=== PATIENT | female | born 1975 | race Caucasian/White ===

== ENCOUNTER 2017-05-03 20:33 | Observation (INO) | payer SELFPAY ==
[~2017-05-03 20:33] MED LIST: DEXAMETHASONE SOD PHOSPHATE INJ 4 MG/1 ML VIAL ONE; GLYCOPYRROLATE INJ 0.4 MG/2 ML VIAL ONE; KETOROLAC TROMETHAMINE 60 MG/2 ML SDV ONE; LIDOCAINE 2% INJ-PF (20 MG/ML) 2 ML AMPUL ONE; METOCLOPRAMIDE HCL INJ/PF 10 MG/2 ML SDV ONE; NEOSTIGMINE METHYLSULFATE 10 MG/10 ML VIAL ONE; ONDANSETRON HCL INJ/PF 4 MG/2 ML SDV ONE; ROCURONIUM BROMIDE INJ 50 MG/5 ML VIAL IV ONE; SUCCINYLCHOLINE CHLORIDE INJ 200 MG/10 ML VIAL ONE
[2017-05-03] MEDS ORDERED: KETOROLAC TROMETHAMINE INJ/PF 30 MG/1 ML SDV IV ONE ×2 (21:20→22:21)
[2017-05-03] MEDS ORDERED: ONDANSETRON HCL INJ/PF 4 MG/2 ML SDV IV ONE (21:20)
[2017-05-03] MEDS ORDERED: MORPHINE SULFATE 10 MG/ML INJ IV ONE (21:20)
--- NOTE | 2017-05-03 21:22 | ER Document Report ---
ED GI/ - General Chief Complaint: Abdominal Pain Stated Complaint: RIB PAIN Time Seen by Provider: 05/03/17 21:15 Notes: Patient is a 41-year-old female that comes emergency department for chief complaint of right upper quadrant pain" pain over the right ribs". She states symptoms have been going on for 3 days, tonight after dinner it became severe and she became nauseated. She ate chicken nuggets, mashed potatoes. She denies vomiting, fever, difficulty breathing, chest pain, flank pain, lower abdominal pain. She has had a cyst removal and endoscopy but denies any other surgeries. She takes no daily medications (takes as needed medications for migraine and asthma). TRAVEL OUTSIDE OF THE [place] IN LAST 30 DAYS: No - Related Data Allergies/Adverse Reactions: amoxicillin Allergy (Verified 01/29/16 09:54) Past Medical History - General Information source: Patient - Social History Smoking Status: Never Smoker Chew tobacco use (# tins/day): No Frequency of alcohol use: Rare Drug Abuse: None Lives with: Family Family History: Reviewed & Not Pertinent Patient has suicidal ideation: No Patient has homicidal ideation: No Pulmonary Medical History: Reports: Hx Asthma Neurological Medical History: Reports: Hx Migraine Renal/ Medical History: Denies: Hx Peritoneal Dialysis Past Surgical History: Reports: Hx Gynecologic Surgery - ovary cyst, Hx Orthopedic Surgery - toes bilaterally Review of Systems - Review of Systems Constitutional: No symptoms reported EENT: No symptoms reported Cardiovascular: No symptoms reported Respiratory: See HPI Gastrointestinal: See HPI Genitourinary: No symptoms reported Female Genitourinary: No symptoms reported Musculoskeletal: No symptoms reported Skin: No symptoms reported Hematologic/Lymphatic: No symptoms reported Neurological/Psychological: No symptoms reported Physical Exam - Vital signs Vitals: Temp Pulse Resp BP Pulse Ox 98.1 F 94 18 120/72 96 05/03/17 20:43 05/03/17 20:43 05/03/17 20:43 05/03/17 20:43 05/03/17 20:43 - General General appearance: Appears well, Alert In distress: Mild - Patient sitting on the edge of the bed, shifting, holding her upper abdomen, appears to be in some pain but is not in severe distress - HEENT Head: Normocephalic, Atraumatic Eyes: Normal Conjunctiva: Normal Extraocular movements intact: Yes Eyelashes: Normal Pupils: PERRL Nasal: Normal Mouth/Lips: Normal Mucous membranes: Normal Pharynx: Normal Neck: Normal - Respiratory Respiratory status: No respiratory distress Chest status: Nontender. No: Tender Breath sounds: Normal. No: Decreased air movement, Wheezing - Cardiovascular Rhythm: Regular. No: Tachycardia Heart sounds: Normal auscultation, S1 appreciated, S2 appreciated Murmur: No Normal capillary refill: Yes - Abdominal Inspection: Normal Tenderness: Tender - Patient with marked tenderness in the right upper quadrant , mild tenderness in the epigastric area, remaining abdomen is benign, Marroquin's sign, Guarding - Back Back: Normal, Nontender. No: Tender, CVA tenderness - Extremities General upper extremity: Normal inspection, Nontender, Normal strength, Normal temperature General lower extremity: Normal inspection, Nontender, Normal strength, Normal temperature. No: Edema - Neurological Neuro grossly intact: Yes Cognition: Normal Orientation: AAOx4 Gateway Coma Scale Eye Opening: Spontaneous Gateway Coma Scale Verbal: Oriented Gateway Coma Scale Motor: Obeys Commands Aditya Coma Scale Total: 15 Speech: Normal Cranial nerves: Normal Cerebellar coordination: Normal Motor strength normal: LUE, RUE, LLE, RLE Sensory: Normal - Skin Skin Temperature: Warm Skin Moisture: Dry Skin Color: Normal Course - Re-evaluation Re-evalutation: Mild leukocytosis at 12.3 with no bandemia or left shift. Chemistry is unremarkable including liver enzymes, bilirubin, lipase. Urine shows a few white blood cells, patient has no lower abdominal pain, flank pain, or dysuria. Culture placed. 05/03/17 22:20 On reevaluation patient still in obvious pain, she states medications help a little bit but she is still very uncomfortable and very nauseated. Ultrasound showing cholelithiasis without cholecystitis, ductal dilatation, or other concerning acute abnormality. 05/03/17 Patient reevaluated again, despite being re-medicated twice she still looks very uncomfortable and she is still holding her right upper abdomen. Remaining abdomen is completely benign. Discussed different options with patient. After discussion, will consult surgeon. Discussed with Dr. Wu, general surgery, patient will be admitted to surgical service for intractable pain with cholelithiasis. He does not recommend antibiotics at this time. Discussed with patient, patient states understanding and agreement with plan. - Vital Signs Vital signs: Temp Pulse Resp BP Pulse Ox 98.1 F 94 18 120/72 96 05/03/17 20:43 05/03/17 20:43 05/03/17 20:43 05/03/17 20:43 05/03/17 20:43 - Laboratory Result Diagrams: 05/03/17 21:03 05/03/17 21:03 Laboratory results interpreted by me: 05/03/17 05/03/17 05/03/17 21:03 21:03 21:08 WBC 12.3 H RDW 14.1 H Plt Count 490 H Total Bilirubin 0.1 L Urine Blood MODERATE H Ur Leukocyte Esterase SMALL H Discharge - Discharge Clinical Impression: RUQ pain, Nausea Cholelithiasis Qualifiers: Cholelithiasis location: gallbladder Cholecystitis presence: without cholecystitis Biliary obstruction: without biliary obstruction Qualified Code(s) : K80.20 - Calculus of gallbladder without cholecystitis without obstruction Condition: Stable Disposition: ADMITTED INPATIENT Admitting Provider: Surgicalist Unit Admitted: Surgical Floor
[2017-05-03 21:32] LABS: ABSOLUTE BASOPHILS # (AUTO) 0.1 10^3/uL (0.0-0.2); ABSOLUTE EOSINOPHILS # (AUTO) 0.3 10^3/uL (0.0-0.6); ABSOLUTE LYMPHOCYTES (AUTO) 4.2 10^3/uL (0.5-4.7); ABSOLUTE MONOCYTES (AUTO) 1.1 10^3/uL (0.1-1.4); ABSOLUTE NEUT (AUTO) 6.7 10^3/uL (1.7-8.2); BASOPHILS % (AUTO) 0.6 % (0-2); EOSINOPHILS % (AUTO) 2.7 % (0-6); HEMATOCRIT 37.5 % (36.0-47.0); HEMOGLOBIN 12.2 g/dL (12.0-15.5); LYMPHOCYTES % (AUTO) 33.8 % (13-45); MEAN CORPUSCULAR HEMOGLOBIN 27.2 pg (27.0-33.4); MEAN CORPUSCULAR HGB CONC 32.5 g/dL (32.0-36.0); MEAN CORPUSCULAR VOLUME 84 fl (80-97); MONOCYTES % (AUTO) 8.6 % (3-13); PLATELET COUNT 490 10^3/uL (150-450); RED BLOOD COUNT 4.48 10^6/uL (3.72-5.28); RED CELL DISTRIBUTION WIDTH 14.1 % (11.5-14.0); SEGMENTED NEUTROPHILS % (AUTO) 54.3 % (42-78); TOTAL CELLS COUNTED % (AUTO) 100 %; WHITE BLOOD COUNT 12.3 10^3/uL (4.0-10.5)
[2017-05-03 21:38] LABS: ANION GAP 10 (5-19); BLOOD UREA NITROGEN 11 mg/dL (7-20); CALCIUM 9.6 mg/dL (8.4-10.2); CARBON DIOXIDE 28 mmol/L (22-30); CHLORIDE 104 mmol/L (98-107); GLUCOSE 94 mg/dL (75-110); SODIUM 142.1 mmol/L (137-145)
[2017-05-03 21:39] LABS: ALANINE AMINOTRANSFERASE 26 U/L (9-52); ALBUMIN 4.3 g/dL (3.5-5.0); ALKALINE PHOSPHATASE 95 U/L (38-126); ASPARTATE AMINO TRANSFERASE 15 U/L (14-36); BILIRUBIN,DIRECT 0.1 mg/dL (0.0-0.4); BILIRUBIN,TOTAL 0.1 mg/dL (0.2-1.3); LIPASE 120.2 U/L (23-300); TOTAL PROTEIN 6.8 g/dL (6.3-8.2)
[2017-05-03 21:56] LABS: APPEARANCE,URINE SLIGHTLY-CLOUDY; BILIRUBIN,URINE NEGATIVE (NEGATIVE); COLOR,URINE YELLOW; GLUCOSE, URINE NEGATIVE (NEGATIVE); KETONES,URINE NEGATIVE (NEGATIVE); LEUKOCYTE ESTERASE,URINE SMALL (NEGATIVE); NITRITE,URINE NEGATIVE (NEGATIVE); PROTEIN,URINE NEGATIVE (NEGATIVE); URINE SPECIFIC GRAVITY 1.021; UROBILINOGEN,URINE NEGATIVE mg/dL (<2.0)
--- NOTE | 2017-05-03 22:11 | RADIOLOGY REPORT (SQ) ---
EXAM DESCRIPTION: U/S ABDOMEN LIMITED W/O DOP COMPLETED DATE/TIME: 05/03/2017 10:02 pm REASON FOR STUDY: RUQ pain COMPARISON: None. TECHNIQUE: Dynamic and static grayscale images acquired of the right upper quadrant and recorded on PACS. Additional selected color Doppler and spectral images recorded. LIMITATIONS: Study limited due to acoustical interference from fat or from air in the bowel. FINDINGS: PANCREAS: Parts or all of the pancreas poorly seen secondary to acoustical interference fr om fat or from air in the bowel. LIVER: Echotexture is coarse with increased echogenicity consistent with fatty infiltration. No mass es. LIVER VASCULATURE: Normal directional flow of the main portal vein and hepatic veins. GALLBLADDER: Gallstone(s). Finally distended. No pericholecystic fluid. No wall thickening. ULTRASOUND-DETECTED HERNANDEZ'S SIGN: Negative. INTRAHEPATIC DUCTS AND COMMON DUCT: CBD and intrahepatic ducts normal caliber. No filling defects. INFERIOR VENA CAVA: Normal flow. AORTA: No aneurysm. RIGHT KIDNEY: Normal size. Normal echogenicity. No solid or suspicious masses. No hydronephrosis. No calcifications. PERITONEAL CAVITY AND RIGHT PLEURAL SPACE: No ascites or effusions. OTHER: No other significant finding. IMPRESSION: FATTY LIVER. CHOLELITHIASIS WITHOUT SONOGRAPHIC EVIDENCE OF CHOLECYSTITIS. PANCREAS PA RTIALLY OR COMPLETELY OBSCURED. OTHERWISE NORMAL RIGHT UPPER QUADRANT ULTRASOUND. TECHNICAL DOCUMENTATION: JOB ID: [id number] [employer]- All Rights Reserved Reading location - IP/workstation name: [email or web address]
[2017-05-03] MEDS ORDERED: NORMAL SALINE 1000 ML 1,000 ML IV ONE (22:21)
[2017-05-03] MEDS ORDERED: HYDROMORPHONE HCL INJ/PF 2 MG/ML AMPULE IV ONE (22:21)
[2017-05-03] MEDS: NORMAL SALINE 1000 ML 1,000 ML IV PRN (23:15)
[2017-05-04] MEDS ORDERED: FENTANYL CITRATE INJ/PF 100 MCG/2 ML AMPUL ONE ×3 (00:18→23:09)
[2017-05-04] MEDS ORDERED: ONDANSETRON HCL INJ/PF 4 MG/2 ML SDV ONE ×2 (00:18→05:54)
[2017-05-04] MEDS: NORMAL SALINE 1000 ML 1,000 ML IV PRN ×2 (00:21→08:11)
[2017-05-04] MEDS ORDERED: ONDANSETRON HCL/PF 4 MG in NORMAL SALINE 50 ML IV PRN (01:32)
[2017-05-04] MEDS ORDERED: DEXTROSE 40% GEL 15 GM TUBE PO PRN ×2 (02:50)
[2017-05-04] MEDS ORDERED: DEXTROSE 50%-WATER 25 GM/50 ML DISP.SYRIN IV PRN ×2 (02:50)
[2017-05-04] MEDS ORDERED: GLUCAGON,HUMAN RECOMB 1 MG INJ SUBCUT PRN (02:50)
[2017-05-04] MEDS: FENTANYL CITRATE INJ/PF 100 MCG/2 ML AMPUL IV PRN ×5 (03:03→23:08)
[2017-05-04] MEDS: ONDANSETRON HCL INJ/PF 4 MG/2 ML SDV IV PRN ×2 (11:49→12:23)
[2017-05-04] MEDS ORDERED: KETOROLAC TROMETHAMINE INJ/PF 30 MG/1 ML SDV ONE (12:21)
[2017-05-04] MEDS ORDERED: ONDANSETRON HCL INJ/PF 4 MG/2 ML SDV IV PRN (13:33)
[2017-05-04] MEDS ORDERED: PROMETHAZINE HCL INJ 25 MG/1 ML VIAL IV PRN ×3 (13:34→22:21)
[2017-05-04] MEDS ORDERED: ONDANSETRON HCL INJ/PF 4 MG/2 ML SDV IV ONE (13:45)
--- NOTE | 2017-05-04 14:53 | PDOC H&P ---
History of Present Illness Admission Date/PCP: 05/03/17 23:09 Patient complains of: Right upper quadrant pain x 3 days History of Present Illness: MARK KAUR is a 41 year old female patient admitted via the emergency department with chief complaint of right upper quadrant pain for 3 days. The pain became worse last night after dinner and is associated with nausea. She ate chicken nuggets, mashed potatoes. She denies vomiting, fever, difficulty breathing, chest pain, flank pain, lower abdominal pain. She has had an open left ovarian cystectomy 28 yrs ago and diagnostic laparoscopy for suspected endometriosis 3 yrs ago in [place] - but was negative. She takes no daily medications (takes as needed medications for migraine and asthma). She had ultrasound in the ER that showed only gallstones but no sonographic signs of cholecystitis. Past Medical History Pulmonary Medical History: Reports: Asthma Neurological Medical History: Reports: Migraine Past Surgical History Past Surgical History: Reports: Orthopedic Surgery - toes bilaterally, Other - Open Left Ovarian Cystectomy 28 yrs ago Diagnostic Laparoscopy 3 yrs ago Social History Lives with: Family Smoking Status: Never Smoker Frequency of Alcohol Use: Rare Hx Recreational Drug Use: No Drugs: None Hx Prescription Drug Abuse: No Family History Family History: Reviewed & Not Pertinent Parental Family History Reviewed: Yes Children Family History Reviewed: Yes Sibling(s) Family History Reviewed.: Yes Medication/Allergy Home Medications: No Home Medications 05/04/17 Allergies/Adverse Reactions: amoxicillin Allergy (Verified 01/29/16 09:54) Review of Systems Constitutional: ABSENT: chills, fever(s), headache(s), weight gain, weight loss Eyes: ABSENT: visual disturbances Ears: ABSENT: hearing changes Nose, Mouth, and Throat: ABSENT: as per HPI, headache(s), mouth pain, sore throat, vertigo, other Cardiovascular: ABSENT: chest pain, dyspnea on exertion, edema, orthropnea, palpitations Respiratory: ABSENT: cough, hemoptysis Gastrointestinal: PRESENT: as per HPI Genitourinary: ABSENT: dysuria, hematuria Musculoskeletal: ABSENT: joint swelling Integumentary: ABSENT: rash, wounds Neurological: ABSENT: abnormal gait, abnormal speech, confusion, dizziness, focal weakness, syncope Psychiatric: ABSENT: anxiety, depression, homidical ideation, suicidal ideation Endocrine: ABSENT: cold intolerance, heat intolerance, polydipsia, polyuria Hematologic/Lymphatic: ABSENT: easy bleeding, easy bruising Physical Exam Vital Signs: Temp Pulse Resp BP Pulse Ox 98.0 F 86 13 120/69 100 05/04/17 12:22 05/04/17 12:22 05/04/17 12:22 05/04/17 12:22 05/04/17 12:22 Intake & Output 05/03/17 05/04/17 05/05/17 06:59 06:59 06:59 Intake Total 0 251 Balance 0 251 Weight 75.5 kg General appearance: PRESENT: cooperative, mild distress, well-developed Head exam: PRESENT: atraumatic, normocephalic Eye exam: PRESENT: conjunctiva pink, EOMI, PERRLA. ABSENT: scleral icterus Ear exam: PRESENT: normal external ear exam Neck exam: ABSENT: carotid bruit, JVD, lymphadenopathy, thyromegaly Respiratory exam: PRESENT: clear to auscultation gertrudis. ABSENT: rales, rhonchi, wheezes Cardiovascular exam: PRESENT: RRR. ABSENT: diastolic murmur, rubs, systolic murmur GI/Abdominal exam: PRESENT: guarding - RUQ, Marroquin's sign, normal bowel sounds, soft, tenderness - RUQ. ABSENT: ascites, diminished bowel sounds, distended, firm, hernia, mass, organolmegaly, rebound - RUQ Neurological exam: PRESENT: alert, awake, oriented to person, oriented to place , oriented to time, oriented to situation, CN II-XII grossly intact. ABSENT: motor sensory deficit Psychiatric exam: PRESENT: appropriate affect Results Impressions: Abdomen Ultrasound 05/03/17 21:20 IMPRESSION: FATTY LIVER. CHOLELITHIASIS WITHOUT SONOGRAPHIC EVIDENCE OF CHOLECYSTITIS. PANCREAS PARTIALLY OR COMPLETELY OBSCURED. OTHERWISE NORMAL RIGHT UPPER QUADRANT ULTRASOUND. Assessment & Plan - Diagnosis (1) Calculus of gallbladder with acute cholecystitis Is this a current diagnosis for this admission?: Yes - Plan Summary Plan Summary: The patient is admitted Keep NPO Will obtain a HIDA scan SCD Lovenox Incentive spirometry Pain control Nausea control Plan for a lap cholecystectomy if HIDA positive.
--- NOTE | 2017-05-04 17:50 | RADIOLOGY REPORT (SQ) ---
EXAM DESCRIPTION: NM HIDA SCAN COMPLETED DATE/TIME: 05/04/2017 4:37 pm REASON FOR STUDY: r/o cholecystitis COMPARISON: Correlation made to ultrasound from 05/03/2017 RADIONUCLIDE AND DOSE: DOSAGE RADIONUCLIDE: 4.63 millicuries Tc99m Mebrofenin. DOSAGE MORPHINE: Not administered. The route of agent administration: Intravenous TECHNIQUE: Serial imaging right upper quadrant up to 60 minutes following injection of radionuclide. Patient imaged AP and Right Lateral. LIMITATIONS: None. FINDINGS: LIVER: Normal visualization without areas of photopenia. INTRA-HEPATIC BILE DUCTS: Temporal visualization normal. No dilatation. COMMON BILE DUCT: Normal without dilatation or delayed visualization. GALLBLADDER: Not visualized. OTHER: No other significant finding. IMPRESSION: NORMAL UPTAKE SEEN WITHIN THE LIVER, BILIARY DUCTS, AND BOWEL. NO UPTAKE IDENTIFIED WIT HIN THE GALLBLADDER. THERE IS NO DELAYED IMAGING OR POST MORPHINE IMAGES PRESENTED FOR INTERPRETATIO N THEREFORE STUDY IS INDETERMINATE AND COULD EITHER REPRESENT ACUTE OR CHRONIC CHOLECYSTITIS. TECHNICAL DOCUMENTATION: JOB ID: [id number] [email or web address]- All Rights Reserved Reading location - IP/workstation name: [email or web address]
[2017-05-04] MEDS: ENOXAPARIN SODIUM INJ 40 MG/0.4 ML DISP.SYRIN SUBCUT SCH (19:27)
[2017-05-04] MEDS ORDERED: LIDOCAINE 1% INJ-PF (10 MG/ML) 30 ML SDV ONE (20:14)
[2017-05-04] MEDS ORDERED: BUPIVACAINE HCL 0.25 % INJ/PF (2.5 MG/1 ML) 30 ML VIAL ONE (20:14)
[2017-05-04] MEDS ORDERED: MIDAZOLAM 2 MG/2 ML INJ ONE (20:16)
[2017-05-04] MEDS ORDERED: FENTANYL CITRATE INJ/PF 250 MCG/5 ML AMPULE ONE (20:16)
[2017-05-04] MEDS ORDERED: PROPOFOL INJ 200 MG/20 ML VIAL IV ONE (20:17)
[2017-05-04] MEDS ORDERED: ACETAMINOPHEN 100 ML IV ONE (20:17)
[2017-05-04] MEDS ORDERED: LEVOFLOXACIN 750 MG/D5W RTU 750 MG/150 ML RTUPB IV ONE (21:18)
[2017-05-04] MEDS ORDERED: FENTANYL CITRATE INJ/PF 100 MCG/2 ML AMPUL IV PRN ×2 (22:21)
[2017-05-04] MEDS ORDERED: DIPHENHYDRAMINE HCL 50 MG/ML VIAL IV PRN (22:21)
[2017-05-04] MEDS ORDERED: MEPERIDINE HCL/PF INJ 25 MG/1 ML DISP.SYRIN IV PRN (22:21)
--- NOTE | 2017-05-04 22:38 | Operative Report ---
Operative Report PREOPERATIVE DIAGNOSIS: Acute Cholecystitis POSTOPERATIVE DIAGNOSIS: Acute Cholecystitis OPERATION: Laparoscopic Cholecystectomy SURGEON: MARY LOU MUÑOZ ANESTHESIA: GA TISSUE REMOVED OR ALTERED: Gallbladder COMPLICATIONS: none ESTIMATED BLOOD LOSS: 30 ml INTRAOPERATIVE FINDINGS: i. inflammed gallbladder with pericholecystic edema. ii. white bile. iii. gallstones PROCEDURE: The patient was brought to the operating room and placed on the operating table. General endotracheal anesthesia was administered and she was positioned supine with both arms placed on arm boards. A time out was done. The abdomen was prepped with chloraprep and sterile drapes laid. Under sterile aseptic conditions, access to the peritoneal cavity was gained using the optical bladeless trocar technique with a 10mm port at the umbilicus. Pneumoperitoneum was insufflated to 15 mmHg. Three additional ports were placed, a 10mm midline subxiphoid port and two 5mm right subcostal ports, one in the midclavicular line and the other in the anterior axillary line. The gallbladder was first aspirated of 130 ml of white bile (clear, colorless, water-like bile) and then it was grasped at the fundus with a grasper passed through the lateral right subcostal port. The infundibulum was grasped with a grasper passed through the medial right subcostal port. The Calot's triangle was dissected out to expose the cystic duct and artery with a critical view of safety displayed anteriorly and posteriorly. There were fibrous adhesions in the Calot's triangle necessitating a careful dissection. The duct was clipped three times toward the patient side and singly clipped toward the gallbladder and transected between the clips. The artery was transected with the Ligasure. The gallbladder was then dissected off the liver bed with the laparoscopic monopolar electrosurgical unit and retrieved from the peritoneal cavity in an endopouch. The pneumoperitoneum was desufflated and all the ports removed. The umbilical port site had the fascial layer closed with 0-prolene using the endoclosure device. The skin incisions were closed with 4-0 monocryl subcuticular stitches. The wounds were infiltrated with local anesthesia, a 1:1 mixture of 1 % lidocaine and 0.25% Bupivacaine, a total of 16 ml, they were cleaned and dressed with dermabond. The patient tolerated the procedure well, she was extubated in the operating room and taken to the PACU in stable condition.
[2017-05-05] MEDS: KETOROLAC TROMETHAMINE INJ/PF 30 MG/1 ML SDV IV PRN ×2 (03:42→12:21)
[2017-05-05] MEDS: NORMAL SALINE 1000 ML 1,000 ML IV PRN (03:42)
[2017-05-05] MEDS: FENTANYL CITRATE INJ/PF 100 MCG/2 ML AMPUL IV PRN (08:27)
[2017-05-05] MEDS: LEVOFLOXACIN 750 MG/D5W RTU 750 MG/150 ML RTUPB IV SCH (09:21)
[2017-05-05] MEDS: ENOXAPARIN SODIUM INJ 40 MG/0.4 ML DISP.SYRIN SUBCUT SCH (09:24)
[2017-05-05] MEDS: OXYCODONE-ACETAMINOPHEN 5-325 MG TABLET PO PRN ×2 (14:56→21:18)
[2017-05-05] MEDS: OXYCODONE HCL IR 5 MG TABLET PO PRN ×2 (14:58→21:18)
--- NOTE | 2017-05-05 23:14 | PDOC PROGRESS REPORT ---
Subjective Progress Note for:: 05/05/17 Subjective:: POD #1 s/p laparoscopic cholecystectomy No more abdominal pain No nausea or vomiting. Tolerating diet. Leaves alone and has 2 pets at home. No family in state. Not sure she can go back to home alone right now. Reason For Visit: ABDOMINAL PAIN Physical Exam Vital Signs: Temp Pulse Resp BP Pulse Ox 98.3 F 80 16 114/67 98 05/05/17 19:32 05/05/17 19:32 05/05/17 19:32 05/05/17 19:32 05/05/17 19:32 Intake & Output 05/04/17 05/05/17 05/06/17 06:59 06:59 06:59 Intake Total 0 3322 960 Output Total 116 1400 Balance 0 3206 -440 Weight 75.5 kg General appearance: PRESENT: no acute distress Respiratory exam: PRESENT: clear to auscultation gertrudis. ABSENT: rales, rhonchi, wheezes Cardiovascular exam: PRESENT: RRR. ABSENT: diastolic murmur, rubs, systolic murmur GI/Abdominal exam: PRESENT: normal bowel sounds, soft, other - insicions aer clean, dry, intact. ABSENT: distended, guarding, mass, organolmegaly, rebound, tenderness Neurological exam: PRESENT: alert, awake, oriented to person, oriented to place , oriented to time, oriented to situation, CN II-XII grossly intact. ABSENT: motor sensory deficit Results Impressions: Abdomen Ultrasound 05/03/17 21:20 IMPRESSION: FATTY LIVER. CHOLELITHIASIS WITHOUT SONOGRAPHIC EVIDENCE OF CHOLECYSTITIS. PANCREAS PARTIALLY OR COMPLETELY OBSCURED. OTHERWISE NORMAL RIGHT UPPER QUADRANT ULTRASOUND. Hepatobiliary Scan Nuclear Medicine 05/04/17 00:00 IMPRESSION: NORMAL UPTAKE SEEN WITHIN THE LIVER, BILIARY DUCTS, AND BOWEL. NO UPTAKE IDENTIFIED WITHIN THE GALLBLADDER. THERE IS NO DELAYED IMAGING OR POST MORPHINE IMAGES PRESENTED FOR INTERPRETATION THEREFORE STUDY IS INDETERMINATE AND COULD EITHER REPRESENT ACUTE OR CHRONIC CHOLECYSTITIS. Assessment & Plan - Diagnosis (1) Calculus of gallbladder with acute cholecystitis Is this a current diagnosis for this admission?: Yes - Plan Summary Plan Summary: Consult social professionals for discharge planning.
[2017-05-06] MEDS: OXYCODONE HCL IR 5 MG TABLET PO PRN ×2 (03:26→07:36)
[2017-05-06] MEDS: OXYCODONE-ACETAMINOPHEN 5-325 MG TABLET PO PRN ×2 (03:26→07:36)
[2017-05-06] MEDS: ENOXAPARIN SODIUM INJ 40 MG/0.4 ML DISP.SYRIN SUBCUT SCH (10:10)
[2017-05-06] MEDS: LEVOFLOXACIN 750 MG/D5W RTU 750 MG/150 ML RTUPB IV SCH (10:10)
[2017-05-06 12:17] VITALS: BP 110/71
--- NOTE | 2017-05-06 15:04 | DISCHARGE SUMMARY E ---
Discharge Summary NAME: MARK KAUR : 1975 AGE: 41Y ADMITTED: 05/03/2017 DISCHARGED: 05/06/2017 REASON FOR ADMISSION: Acute abdominal pain. SUMMARY OF HOSPITALIZATION: The patient is a 41-year-old white female who presents to the Emergency Department complaining of abdominal pain, nausea, and anorexia. She was evaluated by gallbladder ultrasonography and found to have gallstones. She also underwent a HIDA scan for unclear reasons. That was interpreted as a normal study. The patient was kept on IV fluids, n.p.o., and taken to the operating room on 05/03/2017 where she underwent laparoscopic cholecystectomy by . She tolerated the procedure well. There were no post procedure complications. By the second postoperative day, she was felt to be ready for discharge home. DISCHARGE DIAGNOSIS: Symptomatic cholelithiasis with cholecystitis, status post laparoscopic cholecystectomy, Dr. Mosqueda. DISPOSITION: Patient will be discharged home to the care of his family. Followup with Dr. Reich and colleague at [facility] in approximately a week to 10 days. She will take Tylenol or Motrin p.r.n. pain. DICTATING PHYSICIAN: ANKUR REICH M.D. [id number] PHY#: [id number] ID: [id number] JOB#: [id number] ACCT: [id number] cc:ANKUR REICH M.D., IVAN PA >
== END 2017-05-06 13:01 | disposition home or self-care (01) ==
LOC: ER 20:33 → INTOOBSV 23:09 → EH 23:09 → 4S 05-04 00:05
PROC: 0FT44ZZ Resection of Gallbladder, Percutaneous Endoscopic Approach (ICD-10-PCS; principal; 2017-05-03)
DX: K80.10 Calculus of gallbladder with chronic cholecystitis without obstruction (principal); J45.909 Unspecified asthma, uncomplicated
CPT/HCPCS: 47562; 99285; 96361; 96374; 96375; 36415; 87086; 83690; 85025; 81025; 80053; 81001; 88304 ×2; 76705; 78226; G0378 ×3; A9537; J2250; J3490 ×3; J1100; J1885 ×4; J3010 ×3; J2765; J2270; J1650; J1170; J2550; J0330; J2405 ×2; J7030 ×3; J2704; J1956 ×2; J0131; Q9969; 790

== ENCOUNTER → 2017-05-22 | Outpatient (CLI) | payer OTHER ==
[2017-05-22 14:43] LABS: ALANINE AMINOTRANSFERASE 613 U/L (9-52); ALBUMIN 4.4 g/dL (3.5-5.0); ALKALINE PHOSPHATASE 213 U/L (38-126); ASPARTATE AMINO TRANSFERASE 748 U/L (14-36); BILIRUBIN,DIRECT 3.2 mg/dL (0.0-0.4); BILIRUBIN,TOTAL 4.6 mg/dL (0.2-1.3); TOTAL PROTEIN 7.2 g/dL (6.3-8.2)
== END ==
LOC: OD 13:50
PROVIDERS: ATTEND Surgery
DX: R11.0 Nausea (principal); Z90.49 Acquired absence of other specified parts of digestive tract
CPT/HCPCS: 36415; 80076

== ENCOUNTER 2017-05-23 10:01 | Inpatient (IN) | payer SELFPAY ==
[~2017-05-23 10:01] MED LIST changes: -DEXAMETHASONE SOD PHOSPHATE INJ 4 MG/1 ML VIAL ONE; -GLYCOPYRROLATE INJ 0.4 MG/2 ML VIAL ONE; -KETOROLAC TROMETHAMINE 60 MG/2 ML SDV ONE; -METOCLOPRAMIDE HCL INJ/PF 10 MG/2 ML SDV ONE; -NEOSTIGMINE METHYLSULFATE 10 MG/10 ML VIAL ONE; -ONDANSETRON HCL INJ/PF 4 MG/2 ML SDV ONE; -ROCURONIUM BROMIDE INJ 50 MG/5 ML VIAL IV ONE
--- NOTE | 2017-05-23 10:25 | ER Document Report ---
ED Medical Screen (RME) - General Chief Complaint: Urinary Problem Stated Complaint: BLOOD IN URINE Time Seen by Provider: 05/23/17 10:20 Notes: 41-year-old female patient had her gallbladder removed on 05/04/2017. 2 days ago she had some nausea and vomiting, pain in her chest, back, ribs and abdomen. Although symptoms are better at this time. Yesterday she noted blood in the urine and it was quite orange looking. It is better today. She was referred by the surgical clinic to the emergency room to have her liver tests done. LMP was 04/30/2017. I have greeted and performed a rapid initial assessment of this patient. A comprehensive ED assessment and evaluation of the patient, analysis of test results and completion of the medical decision making process will be conducted by additional ED providers. TRAVEL OUTSIDE OF THE [place] IN LAST 30 DAYS: No - Related Data Allergies/Adverse Reactions: amoxicillin Allergy (Verified 01/29/16 09:54) Past Medical History - General Last Menstrual Period: April 30, 2017 - Social History Frequency of alcohol use: Rare Drug Abuse: None Pulmonary Medical History: Reports: Hx Asthma Neurological Medical History: Reports: Hx Migraine Renal/ Medical History: Denies: Hx Peritoneal Dialysis Past Surgical History: Reports: Hx Cholecystectomy, Hx Gynecologic Surgery - ovary cyst, Hx Orthopedic Surgery - toes bilaterally, Other - Open Left Ovarian Cystectomy 28 yrs ago Diagnostic Laparoscopy 3 yrs ago - Immunizations History of Influenza Vaccine for 11/2016 - 04/2017 Season: Refused Physical Exam - Vital signs Vitals: Temp Pulse Resp BP Pulse Ox 97.7 F 79 20 119/61 100 05/23/17 10:06 05/23/17 10:06 05/23/17 10:06 05/23/17 10:06 05/23/17 10:06 Course - Vital Signs Vital signs: Temp Pulse Resp BP Pulse Ox 97.7 F 79 20 119/61 100 05/23/17 10:06 05/23/17 10:06 05/23/17 10:06 05/23/17 10:06 05/23/17 10:06
[2017-05-23] MEDS ORDERED: NORMAL SALINE 1000 ML 1,000 ML IV PRN ×2 (10:44→20:12)
--- NOTE | 2017-05-23 10:44 | ER Document Report ---
ED General - General Chief Complaint: Urinary Problem Stated Complaint: BLOOD IN URINE Time Seen by Provider: 05/23/17 10:20 Mode of Arrival: Ambulatory Information source: Patient Notes: 41-year-old female who had her gallbladder taken out on 05/04 with complaints of abdominal pain that started 2 days ago, she denies any fevers up until last night, states she went to her surgical follow-up had blood work performed and noted today that her urine was very dark. The office called her to let her know that her lab were abnormal. TRAVEL OUTSIDE OF THE [place] IN LAST 30 DAYS: No - HPI Onset: Yesterday Onset/Duration: Sudden Quality of pain: Achy, Cramping Severity: Mild Pain Level: 2 Associated symptoms: Nausea, Vomiting Exacerbated by: Food Relieved by: Denies Similar symptoms previously: Yes Recently seen / treated by doctor: Yes - Related Data Allergies/Adverse Reactions: amoxicillin Allergy (Verified 01/29/16 09:54) Past Medical History - General Last Menstrual Period: April 30, 2017 - Social History Smoking Status: Never Smoker Cigarette use (# per day): No Chew tobacco use (# tins/day): No Smoking Education Provided: No Frequency of alcohol use: Rare Drug Abuse: None Family History: Reviewed & Not Pertinent Patient has suicidal ideation: No Patient has homicidal ideation: No Pulmonary Medical History: Reports: Hx Asthma Neurological Medical History: Reports: Hx Migraine Renal/ Medical History: Denies: Hx Peritoneal Dialysis Past Surgical History: Reports: Hx Cholecystectomy, Hx Gynecologic Surgery - ovary cyst, Hx Orthopedic Surgery - toes bilaterally, Other - Open Left Ovarian Cystectomy 28 yrs ago Diagnostic Laparoscopy 3 yrs ago Review of Systems - Review of Systems Notes: REVIEW OF SYSTEMS: CONSTITUTIONAL : admits to fevers chills EENT: Denies eye, ear, throat, or mouth pain or symptoms. Denies nasal or sinus congestion or discharge. Denies throat, tongue, or mouth swelling or difficulty swallowing. CARDIOVASCULAR: Denies chest pain. Denies palpitations or racing or irregular heart beat. Denies ankle edema. RESPIRATORY: Denies cough, cold, or chest congestion. Denies shortness of breath, difficulty breathing, or wheezing. GASTROINTESTINAL: admits to abd pain nausea vomiting GENITOURINARY: admits to dark urine FEMALE GENITOURINARY: Denies vaginal bleeding, heavy or abnormal periods, irregular periods. Denies vaginal discharge or odor. MUSCULOSKELETAL: Denies back or neck pain or stiffness. Denies joint pain or swelling. SKIN: Denies rash, lesions or sores. HEMATOLOGIC : Denies easy bruising or bleeding. LYMPHATIC: Denies swollen, enlarged glands. NEUROLOGICAL: Denies confusion or altered mental status. Denies passing out or loss of consciousness. Denies dizziness or lightheadedness. Denies headache. Denies weakness or paralysis or loss of use of either side. Denies problems with gait or speech. Denies sensory loss, numbness, or tingling. Denies seizures. PSYCHIATRIC: Denies anxiety or stress. Denies depression, suicidal ideation, or homicidal ideation. ALL OTHER SYSTEMS REVIEWED AND NEGATIVE. PHYSICAL EXAMINATION: GENERAL: Well-appearing, well-nourished and in no acute distress. HEAD: Atraumatic, normocephalic. EYES: Pupils equal round and reactive to light, extraocular movements intact, conjunctiva are normal. ENT: Nares patent, oropharynx clear without exudates. Moist mucous membranes. NECK: Normal range of motion, supple without lymphadenopathy LUNGS: Breath sounds clear to auscultation bilaterally and equal. No wheezes rales or rhonchi. HEART: Regular rate and rhythm without murmurs ABDOMEN: Soft, tender in the right upper quadrant Female : deferred Musculoskeletal: Normal range of motion, no pitting or edema. No cyanosis. NEUROLOGICAL: Cranial nerves grossly intact. Normal speech, normal gait. Normal sensory, motor exams PSYCH: Normal mood, normal affect. SKIN: Postsurgical incisions well-appearing Dictation was performed using [employer] voice recognition software Physical Exam - Vital signs Vitals: Temp Pulse Resp BP Pulse Ox 97.7 F 79 20 119/61 100 05/23/17 10:06 05/23/17 10:06 05/23/17 10:06 05/23/17 10:06 05/23/17 10:06 Course - Re-evaluation Re-evalutation: Patient has probable choledocholithiasis, elevated liver enzymes and bilirubin noted, given fever chills I have concerns for infectious process 05/23/17 11:21 Dr awad has evlauated patietn , is trying ot get GI involved. 05/23/17 11:32 05/23/17 14:[address] Ridley, he will gladly do an ERCP which means I can admit the patient here, admission orders have been placed and patient is otherwise stable - Vital Signs Vital signs: Temp Pulse Resp BP Pulse Ox 97.7 F 79 20 119/61 100 05/23/17 10:06 05/23/17 10:06 05/23/17 10:06 05/23/17 10:06 05/23/17 10:06 - Laboratory Result Diagrams: 05/23/17 10:28 05/23/17 10:28 Laboratory results interpreted by me: 05/23/17 05/23/17 05/23/17 10:28 10:28 10:28 Plt Count 502 H Total Bilirubin 5.8 H Direct Bilirubin 4.7 H AST 547 H ALT 610 H Alkaline Phosphatase 249 H Urine Protein 30 H Urine Glucose (UA) 50 H Urine Ketones TRACE H Urine Blood LARGE H Urine Bilirubin MODERATE H Urine Urobilinogen 4.0 H Ur Leukocyte Esterase MODERATE H - Diagnostic Test Radiology reviewed: Image reviewed - Previous ultrasound reviewed, Reports reviewed Discharge - Discharge Clinical Impression: Choledocholithiasis Condition: Stable Disposition: ADMITTED INPATIENT Admitting Provider: Surgicalist Unit Admitted: Surgical Floor
[2017-05-23 10:53] LABS: ABSOLUTE BASOPHILS # (AUTO) 0.1 10^3/uL (0.0-0.2); ABSOLUTE EOSINOPHILS # (AUTO) 0.2 10^3/uL (0.0-0.6); ABSOLUTE LYMPHOCYTES (AUTO) 2.1 10^3/uL (0.5-4.7); ABSOLUTE MONOCYTES (AUTO) 0.8 10^3/uL (0.1-1.4); ABSOLUTE NEUT (AUTO) 5.7 10^3/uL (1.7-8.2); BASOPHILS % (AUTO) 0.9 % (0-2); EOSINOPHILS % (AUTO) 1.8 % (0-6); HEMATOCRIT 39.7 % (36.0-47.0); HEMOGLOBIN 12.9 g/dL (12.0-15.5); LYMPHOCYTES % (AUTO) 23.4 % (13-45); MEAN CORPUSCULAR HEMOGLOBIN 27.3 pg (27.0-33.4); MEAN CORPUSCULAR HGB CONC 32.5 g/dL (32.0-36.0); MEAN CORPUSCULAR VOLUME 84 fl (80-97); MONOCYTES % (AUTO) 8.6 % (3-13); PLATELET COUNT 502 10^3/uL (150-450); RED BLOOD COUNT 4.71 10^6/uL (3.72-5.28); SEGMENTED NEUTROPHILS % (AUTO) 65.3 % (42-78); TOTAL CELLS COUNTED % (AUTO) 100 %; WHITE BLOOD COUNT 8.8 10^3/uL (4.0-10.5)
[2017-05-23 11:12] LABS: APPEARANCE,URINE CLOUDY; BILIRUBIN,URINE MODERATE (NEGATIVE); COLOR,URINE AMBER; GLUCOSE, URINE 50 mg/dL (NEGATIVE); KETONES,URINE TRACE mg/dL (NEGATIVE); LEUKOCYTE ESTERASE,URINE MODERATE (NEGATIVE); NITRITE,URINE NEGATIVE (NEGATIVE); PROTEIN,URINE 30 mg/dL (NEGATIVE); URINE SPECIFIC GRAVITY 1.024
[2017-05-23] MEDS ORDERED: VANCOMYCIN HCL INJ 1000 MG VIAL IV ONE (11:15)
[2017-05-23] MEDS ORDERED: PIPERACILLIN/TAZOBACTAM 3.375 GM VIAL IV ONE (11:15)
[2017-05-23 11:16] LABS: ALANINE AMINOTRANSFERASE 610 U/L (9-52); ALBUMIN 4.5 g/dL (3.5-5.0); ALKALINE PHOSPHATASE 249 U/L (38-126); ANION GAP 13 (5-19); ASPARTATE AMINO TRANSFERASE 547 U/L (14-36); BILIRUBIN,DIRECT 4.7 mg/dL (0.0-0.4); BILIRUBIN,TOTAL 5.8 mg/dL (0.2-1.3); BLOOD UREA NITROGEN 11 mg/dL (7-20); CALCIUM 9.9 mg/dL (8.4-10.2); CARBON DIOXIDE 25 mmol/L (22-30); CHLORIDE 105 mmol/L (98-107); GLUCOSE 99 mg/dL (75-110); POTASSIUM 4.5 mmol/L (3.6-5.0); SODIUM 143.3 mmol/L (137-145); TOTAL PROTEIN 7.6 g/dL (6.3-8.2)
[2017-05-23] MEDS ORDERED: VANCOMYCIN HCL INJ 1000 MG VIAL ONE (14:29)
[2017-05-23] MEDS ORDERED: ACETAMINOPHEN 325 MG TABLET ONE (16:44)
[2017-05-23] MEDS ORDERED: ACETAMINOPHEN 325 MG TABLET PO ONE (17:00)
[2017-05-23] MEDS ORDERED: PROPOFOL INJ 200 MG/20 ML VIAL IV ONE (17:12)
[2017-05-23] MEDS ORDERED: FENTANYL CITRATE INJ/PF 100 MCG/2 ML AMPUL ONE (17:12)
[2017-05-23] MEDS ORDERED: MIDAZOLAM 2 MG/2 ML INJ ONE (17:12)
[2017-05-23] MEDS ORDERED: FENTANYL CITRATE INJ/PF 100 MCG/2 ML AMPUL IV PRN ×3 (18:55)
[2017-05-23] MEDS ORDERED: PROMETHAZINE HCL INJ 25 MG/1 ML VIAL IV PRN (18:55)
[2017-05-23] MEDS ORDERED: DIPHENHYDRAMINE HCL 50 MG/ML VIAL IV PRN (18:55)
--- NOTE | 2017-05-23 19:44 | CONSULTATION REPORT E ---
Consultation Report NAME: MARK KAUR : 1975 AGE: 41Y DATE: 05/23/2017 ROOM: 205 A TO: LEONARD SWARTZ M.D. FROM: ISIS SALGUERO M.D. Requesting Physician Consultation requested by surgicalist. HISTORY OF THE PRESENT ILLNESS: This is a 41-year-old patient who was admitted through the emergency room with abdominal pain and jaundice. She had laparoscopic cholecystectomy performed on 05/04/2017 and was doing well at home until the last few days. She has been having recurrent right upper quadrant pain. She noticed dark urine yesterday. On admission her bilirubin was 5.8 with AST of 547 and ALT of 610, alkaline phosphatase was 249. A CBC was normal. She has no previous history of liver disease. Her LFTs were normal on 05/03/2017 with a lipase of 120. PAST MEDICAL HISTORY: Gallstones, asthma, and migraine. PAST SURGICAL HISTORY: Recent cholecystectomy, laparoscopy, and left ovarian cystectomy. ALLERGIES: AMOXICILLIN. REVIEW OF SYSTEMS: Other than the above is noncontributory. FAMILY HISTORY: Noncontributory. PHYSICAL EXAMINATION: GENERAL: Shows a lady in no distress. VITAL SIGNS: She has a blood pressure of 119/61, heart rate of 86, temperature 97.7. HEENT: No pallor but there is jaundice. Oropharynx is normal. NECK: No bruit, no JVD. CHEST: No deformity. LUNGS: Clear. CARDIAC: Heart sounds 1 and 2 normal without murmur. ABDOMEN: Soft and nontender. Liver and spleen not palpable. Bowel sounds active. NEUROLOGIC: Grossly nonfocal. IMAGING STUDIES: Ultrasound from 05/03/17 did show fatty liver with gallstone and no dilated biliary tree. ASSESSMENT AND PLAN: Jaundice. She has developed abdominal pain and jaundice within a few weeks of cholecystectomy. I suspect she has choledocholithiasis and the need for ERCP was explained to the patient. She was given antibiotics in the emergency room. I will follow her with you. DICTATING PHYSICIAN: LEONARD SWARTZ M.D. [id number] PHY#: [id number] ID: [id number] JOB#: [id number] ACCT: [id number] cc:LEONARD SWARTZ M.D. >
--- NOTE | 2017-05-23 19:45 | OPERATIVE REPORT E ---
Operative Report NAME: MARK KAUR : 1975 AGE: 41Y DATE OF SURGERY: 05/23/2017 ROOM: 205 PREOPERATIVE DIAGNOSIS: JAUNDICE WITH RECENT CHOLECYSTECTOMY. POSTOPERATIVE DIAGNOSIS: COMMON BILE DUCT SLUDGE. SURGERY: ERCP (endoscopic retrograde cholangiopancreatography) with enterostomy and balloon sludge extraction. SURGEON: ELONARD SWARTZ M.D. MEDICATIONS: As per anesthesia. TISSUE REMOVED: None. PROCEDURE: After informed consent obtained from patient, she was placed under general anesthesia. The ERCP endoscope was then inserted into the esophagus and into the stomach. The duodenum was entered. Using the triple-lumen enterostomy catheter, the common bile duct was freely cannulated. A cholangiogram was obtained, and it showed possible filling defect in the distal end. A good-sized sphincterotomy was then performed. A balloon catheter was then inserted into the proximal duct and pulled out of the duct. A small amount of sludge was extracted. The duct was cleared 2 more times. Balloon occlusion cholangiogram was unremarkable. She tolerated the procedure well. The pancreatic duct was intentionally not cannulated. PLAN: We will observe until tomorrow morning. DICTATING PHYSICIAN: LEONARD SWARTZ M.D. [id number] PHY#: [id number] ID: [id number] JOB#: [id number] ACCT: [id number] cc:LEONARD SWARTZ M.D. >
[2017-05-23] MEDS ORDERED: ONDANSETRON HCL INJ/PF 4 MG/2 ML SDV ONE (20:09)
[2017-05-23] MEDS ORDERED: ONDANSETRON HCL INJ/PF 4 MG/2 ML SDV IV PRN (20:11)
[2017-05-23] MEDS ORDERED: SUMATRIPTAN SUCCINATE 50 MG TABLET PO PRN (20:30)
--- NOTE | 2017-05-23 21:19 | PDOC H&P ---
History of Present Illness Admission Date/PCP: 05/23/17 11:18 Patient complains of: abdominal pains with nausea History of Present Illness: Had lap. cholecystectomy about a month ago. C/O abdominal pains with nausea. Seen at the clinic on . Blood work on suspicious for retained CBD stone with elevated liver enzymes. Past Medical History Pulmonary Medical History: Reports: Asthma Neurological Medical History: Reports: Migraine Psychiatric Medical History: Denies: Depression Past Surgical History Past Surgical History: Reports: Cholecystectomy, Orthopedic Surgery - toes bilaterally, Other - Open Left Ovarian Cystectomy 28 yrs ago Diagnostic Laparoscopy 3 yrs ago Social History Smoking Status: Never Smoker Frequency of Alcohol Use: Rare Hx Recreational Drug Use: No Drugs: None Hx Prescription Drug Abuse: No - Advance Directive Resuscitation Status: Full Code Family History Family History: Reviewed & Not Pertinent Parental Family History Reviewed: Yes Children Family History Reviewed: No Sibling(s) Family History Reviewed.: No Medication/Allergy Home Medications: Ibuprofen [Motrin Ib] 400 mg PO BIDP PRN 05/23/17 Amox Tr/Potassium Clavulanate [Augmentin 875-125 mg Tablet] 1 tab PO BID #20 tablet 05/25/17 Allergies/Adverse Reactions: amoxicillin Allergy (Verified 01/29/16 09:54) Review of Systems Constitutional: PRESENT: as per HPI, chills, other Ears: PRESENT: other - no visual / hearing changes Cardiovascular: PRESENT: other - no chest pains/cough Gastrointestinal: PRESENT: abdominal pain, nausea, vomiting Genitourinary: PRESENT: other - no dysuria Neurological: PRESENT: weakness Endocrine: PRESENT: other - no polyuria Hematologic/Lymphatic: PRESENT: other - no easy bruising Physical Exam Vital Signs: Temp Pulse Resp BP Pulse Ox 98.4 F 81 16 116/75 97 05/23/17 19:54 05/23/17 19:54 05/23/17 19:54 05/23/17 19:54 05/23/17 19:54 Intake & Output 05/22/17 05/23/17 05/24/17 06:59 06:59 06:59 Intake Total 400 Output Total 0 Balance 400 Assessment & Plan - Plan Summary Plan Summary: For ERCP by Dr Ridley this afternoon. IV antibiotics
[2017-05-23] MEDS: PROMETHAZINE HCL INJ 25 MG/1 ML VIAL IV PRN (23:29)
[2017-05-24] MEDS ORDERED: PIPERACILLIN/TAZOBACTAM 3.375 GM VIAL IV ONE ×2 (00:07→06:38)
[2017-05-24] MEDS: PIPERACILLIN SODIUM/TAZOBACTAM 3.375 GM in NORMAL SALINE 100 ML IV SCH ×5 (00:48→23:14)
[2017-05-24 07:10] LABS: ABSOLUTE BASOPHILS # (AUTO) 0.1 10^3/uL (0.0-0.2); ABSOLUTE EOSINOPHILS # (AUTO) 0.3 10^3/uL (0.0-0.6); ABSOLUTE LYMPHOCYTES (AUTO) 2.1 10^3/uL (0.5-4.7); ABSOLUTE MONOCYTES (AUTO) 0.8 10^3/uL (0.1-1.4); BASOPHILS % (AUTO) 0.8 % (0-2); EOSINOPHILS % (AUTO) 2.6 % (0-6); HEMATOCRIT 31.7 % (36.0-47.0); LYMPHOCYTES % (AUTO) 20.4 % (13-45); MEAN CORPUSCULAR HEMOGLOBIN 27.8 pg (27.0-33.4); MEAN CORPUSCULAR HGB CONC 33.1 g/dL (32.0-36.0); MEAN CORPUSCULAR VOLUME 84 fl (80-97); MONOCYTES % (AUTO) 7.7 % (3-13); PLATELET COUNT 377 10^3/uL (150-450); RED BLOOD COUNT 3.78 10^6/uL (3.72-5.28); RED CELL DISTRIBUTION WIDTH 13.6 % (11.5-14.0); SEGMENTED NEUTROPHILS % (AUTO) 68.5 % (42-78); TOTAL CELLS COUNTED % (AUTO) 100 %; WHITE BLOOD COUNT 10.2 10^3/uL (4.0-10.5)
[2017-05-24 07:18] LABS: HEMOGLOBIN 10.5 g/dL (12.0-15.5)
[2017-05-24] MEDS ORDERED: SUMATRIPTAN SUCCINATE 50 MG TABLET PO PRN (07:18)
[2017-05-24 07:23] LABS: ALANINE AMINOTRANSFERASE 333 U/L (9-52); ALBUMIN 3.1 g/dL (3.5-5.0); ALKALINE PHOSPHATASE 173 U/L (38-126); ANION GAP 9 (5-19); ASPARTATE AMINO TRANSFERASE 127 U/L (14-36); BILIRUBIN,DIRECT 0.5 mg/dL (0.0-0.4); BLOOD UREA NITROGEN 5 mg/dL (7-20); CALCIUM 8.6 mg/dL (8.4-10.2); CARBON DIOXIDE 20 mmol/L (22-30); CHLORIDE 112 mmol/L (98-107); GLUCOSE 92 mg/dL (75-110); TOTAL PROTEIN 5.3 g/dL (6.3-8.2)
[2017-05-24 07:37] LABS: BILIRUBIN,TOTAL 1.1 mg/dL (0.2-1.3)
--- NOTE | 2017-05-24 10:25 | RADIOLOGY REPORT (SQ) ---
EXAM DESCRIPTION: NO CHG FLUORO COMPLETE DATE/TIME: 05/23/2017 7:27 pm REASON FOR STUDY: ERCP FINDINGS: Please see combined report for performance of procedure and radiologic supervision and int erpretation. IMPRESSION: Please see combined report for performance of procedure and radiologic supervision and i nterpretation. Reading location - IP/workstation name: [email or web address]
--- NOTE | 2017-05-24 10:25 | RADIOLOGY REPORT (SQ) ---
EXAM DESCRIPTION: ENDO CATH/BILIARY DUCT COMPLETED DATE/TIME: 05/23/2017 7:27 pm REASON FOR STUDY: ERCP COMPARISON: None. FLUOROSCOPY TIME: 2.2 minutes 5 images saved to PACS. TECHNIQUE: Intra-operative images acquired during surgical procedure to evaluate progress. NUMBER OF IMAGES: 5 images LIMITATIONS: None. FINDINGS: Fluoroscopic images were obtained during performance of an ERCP. The common bile duct was cannulated in a retrograde fashion and radiographic contrast injected. Contrast is identified in th e common bile duct and several of the intrahepatic biliary radicals. Please refer to the surgeon's o perative report for additional information IMPRESSION: IMAGE(S) OBTAINED DURING PROCEDURE. COMMENT: Quality ID [id number]: Final reports for procedures using fluoroscopy that document radiation exp osure indices, or exposure time and number of fluorographic images (if radiation exposure indices are not available) Please consult full operative report of the attending physician for description of the procedure. TECHNICAL DOCUMENTATION: JOB ID: [id number] [employer]- All Rights Reserved Reading location - IP/workstation name: [email or web address]
[2017-05-24] MEDS: PROMETHAZINE HCL INJ 25 MG/1 ML VIAL IV PRN (11:54)
--- NOTE | 2017-05-24 15:05 | PDOC PROGRESS REPORT ---
Subjective Progress Note for:: 05/24/17 Subjective:: sleepy but comfortable Reason For Visit: COMMON BILE DUCT CALCULUS Physical Exam Vital Signs: Temp Pulse Resp BP Pulse Ox 99.3 F 78 16 105/66 96 05/24/17 11:36 05/24/17 11:36 05/24/17 11:36 05/24/17 11:36 05/24/17 11:36 Intake & Output 05/23/17 05/24/17 05/25/17 06:59 06:59 06:59 Intake Total 800 Output Total 780 Balance 20 General appearance: PRESENT: no acute distress Respiratory exam: PRESENT: clear to auscultation gertrudis Cardiovascular exam: PRESENT: RRR GI/Abdominal exam: PRESENT: hyperactive bowel sounds, normal bowel sounds, soft , other - all incisions are C/D/I Results Laboratory Results: 05/24/17 06:57 05/24/17 06:57 05/24/17 05/24/17 06:57 06:57 WBC 10.2 RBC 3.78 Hgb 10.5 L D Hct 31.7 L MCV 84 MCH 27.8 MCHC 33.1 RDW 13.6 Plt Count 377 Seg Neutrophils % 68.5 Lymphocytes % 20.4 Monocytes % 7.7 Eosinophils % 2.6 Basophils % 0.8 Absolute Neutrophils 7.0 Absolute Lymphocytes 2.1 Absolute Monocytes 0.8 Absolute Eosinophils 0.3 Absolute Basophils 0.1 Sodium 141.0 Potassium 4.0 Chloride 112 H Carbon Dioxide 20 L Anion Gap 9 BUN 5 L Creatinine 0.54 Est GFR ( Amer) > 60 Est GFR (Non-Af Amer) > 60 Glucose 92 Calcium 8.6 Total Bilirubin 1.1 D AST 127 H ALT 333 H Alkaline Phosphatase 173 H Total Protein 5.3 L Albumin 3.1 L Lipase 77.0 Impressions: Catheter Placement 05/23/17 00:00 IMPRESSION: IMAGE(S) OBTAINED DURING PROCEDURE. Fluoroscopy 05/23/17 00:00 IMPRESSION: Please see combined report for performance of procedure and radiologic supervision and interpretation. Assessment & Plan - Plan Summary Plan Summary: A/ POD #1 after ERCP for choledocholithiasis for retained CBD stone S/P lap smiley (05/06/17) VSS, AF LFT's improving Lipase normal WBC normal Patient sleepiness secondary to Phenergan P/ Stop Phenergan Continue Zofran prn n/v Continue Zosyn IV abx Advance diet to low fat Home tomorrow if the liver numbers continue to improve
[2017-05-25] MEDS: PIPERACILLIN SODIUM/TAZOBACTAM 3.375 GM in NORMAL SALINE 100 ML IV SCH ×2 (05:21→11:12)
[2017-05-25 06:28] LABS: ABSOLUTE BASOPHILS # (AUTO) 0.1 10^3/uL (0.0-0.2); ABSOLUTE EOSINOPHILS # (AUTO) 0.5 10^3/uL (0.0-0.6); ABSOLUTE LYMPHOCYTES (AUTO) 2.5 10^3/uL (0.5-4.7); ABSOLUTE MONOCYTES (AUTO) 0.9 10^3/uL (0.1-1.4); BASOPHILS % (AUTO) 0.7 % (0-2); EOSINOPHILS % (AUTO) 4.7 % (0-6); HEMOGLOBIN 10.5 g/dL (12.0-15.5); LYMPHOCYTES % (AUTO) 25.1 % (13-45); MEAN CORPUSCULAR HEMOGLOBIN 27.8 pg (27.0-33.4); MEAN CORPUSCULAR HGB CONC 32.8 g/dL (32.0-36.0); MEAN CORPUSCULAR VOLUME 85 fl (80-97); MONOCYTES % (AUTO) 8.9 % (3-13); PLATELET COUNT 361 10^3/uL (150-450); RED BLOOD COUNT 3.78 10^6/uL (3.72-5.28); RED CELL DISTRIBUTION WIDTH 14.1 % (11.5-14.0); SEGMENTED NEUTROPHILS % (AUTO) 60.6 % (42-78); TOTAL CELLS COUNTED % (AUTO) 100 %; WHITE BLOOD COUNT 9.9 10^3/uL (4.0-10.5)
[2017-05-25 06:52] LABS: ALANINE AMINOTRANSFERASE 227 U/L (9-52); ALBUMIN 3.2 g/dL (3.5-5.0); ALKALINE PHOSPHATASE 144 U/L (38-126); ANION GAP 12 (5-19); ASPARTATE AMINO TRANSFERASE 50 U/L (14-36); BILIRUBIN,DIRECT 0.4 mg/dL (0.0-0.4); BILIRUBIN,TOTAL 0.8 mg/dL (0.2-1.3); BLOOD UREA NITROGEN 6 mg/dL (7-20); CALCIUM 8.9 mg/dL (8.4-10.2); CARBON DIOXIDE 20 mmol/L (22-30); CHLORIDE 110 mmol/L (98-107); GLUCOSE 92 mg/dL (75-110); LIPASE 59.9 U/L (23-300); TOTAL PROTEIN 5.1 g/dL (6.3-8.2)
--- NOTE | 2017-05-25 11:18 | PDOC PROGRESS REPORT ---
Subjective Progress Note for:: 05/25/17 Subjective:: pateint comfortable no nausea or vomiting Reason For Visit: COMMON BILE DUCT CALCULUS Physical Exam Vital Signs: Temp Pulse Resp BP Pulse Ox 98.1 F 71 18 116/71 95 05/25/17 07:27 05/25/17 07:27 05/25/17 07:27 05/25/17 07:27 05/25/17 07:27 Intake & Output 05/24/17 05/25/17 05/26/17 06:59 06:59 06:59 Intake Total 800 520 Output Total 780 Balance 20 520 General appearance: PRESENT: no acute distress Respiratory exam: PRESENT: clear to auscultation gertrudis Cardiovascular exam: PRESENT: RRR GI/Abdominal exam: PRESENT: normal bowel sounds, soft, other - surgical incisions are c/d/i Results Laboratory Results: 05/25/17 05:52 05/25/17 05:52 05/25/17 05/25/17 05:52 05:52 WBC 9.9 RBC 3.78 Hgb 10.5 L Hct 32.0 L MCV 85 MCH 27.8 MCHC 32.8 RDW 14.1 H Plt Count 361 Seg Neutrophils % 60.6 Lymphocytes % 25.1 Monocytes % 8.9 Eosinophils % 4.7 Basophils % 0.7 Absolute Neutrophils 6.0 Absolute Lymphocytes 2.5 Absolute Monocytes 0.9 Absolute Eosinophils 0.5 Absolute Basophils 0.1 Sodium 142.0 Potassium 4.0 Chloride 110 H Carbon Dioxide 20 L Anion Gap 12 BUN 6 L Creatinine 0.63 Est GFR ( Amer) > 60 Est GFR (Non-Af Amer) > 60 Glucose 92 Calcium 8.9 Total Bilirubin 0.8 AST 50 H ALT 227 H Alkaline Phosphatase 144 H Total Protein 5.1 L Albumin 3.2 L Lipase 59.9 Impressions: Catheter Placement 05/23/17 00:00 IMPRESSION: IMAGE(S) OBTAINED DURING PROCEDURE. Fluoroscopy 05/23/17 00:00 IMPRESSION: Please see combined report for performance of procedure and radiologic supervision and interpretation. Assessment & Plan - Plan Summary Plan Summary: A/ POD# 2 after ERCP VSS, AF tolerating po well no abdominal pain LFT's improving since yesterday P/ Home today F/U with General surgery clinic in 2 weeks (After 06/07/17) CBC, CMP, Lipase before office visit (right before 06/07/17) Follow up with Dr. Ridley maintenance assistant in 3 weeks Resume activities, shower or bath can return to work immediately Low fat diet x 2 months (nothing fried, greasy, butter, cream, etc.) Minimize alcohol consumption
[2017-05-25 11:54] VITALS: BP 107/65
--- NOTE | 2017-05-25 14:14 | DISCHARGE SUMMARY E ---
Discharge Summary NAME: MARK KAUR : 1975 AGE: 41Y ADMITTED: 05/23/2017 DISCHARGED: 05/25/2017 FINAL DIAGNOSES: 1. Status post laparoscopic cholecystectomy in April. 2. Choledocholithiasis. PROCEDURE: On 05/23, the patient underwent an ERCP with removal of common bile duct stones. COMPLICATIONS: None. HOSPITAL COURSE: This is a 41-year-old female who underwent laparoscopic cholecystectomy about a month ago. She presented back to the emergency room on 05/23, complaining of right upper quadrant pain. Blood work was done revealing elevation in liver enzymes, as for choledocholithiasis. The patient underwent an ERCP on 05/25/2017 with removal of common bile duct stones. No stent was placed. Her postop course was unremarkable. Her vital signs remained stable the patient was able to tolerate p.o. well. Her physical exam was unremarkable. Her abdomen was soft and her liver numbers slowly improved with a normal bilirubin and progressive improvement of AST, ALT, and alkaline phosphatase on the day of discharge. The patient was sent home on 05/25. DISCHARGE INSTRUCTIONS: She was given a low-fat diet without greasy food, no cream, and no butter for about a month. She was encouraged to decrease her consumption of alcohol, resume other home medications. She can return to work any time. Follow up at the surgical office in 2 weeks, on 06/07. Have blood work drawn (CBC, CMP, and lipase) right before the office appointment, and follow up with Dr. Ridley the service assistant in about 3 weeks. DICTATING PHYSICIAN: FLORA CARTAGENA M.D. [id number] PHY#: [id number] ID: [id number] JOB#: [id number] ACCT: [id number] cc:Juan Manuel MUELLER M.D. > MTDD
== END 2017-05-25 13:20 | disposition home or self-care (01) | DRG 410 ==
LOC: ER 10:01 → EH 11:18 → 2N 14:59
PROVIDERS: ADMIT Surgery; ATTEND Surgery
PROC: 0FC48ZZ Extirpation of Matter from Gallbladder, Via Natural or Artificial Opening Endoscopic (ICD-10-PCS; principal; 2017-05-23 18:00)
PROC: 0F798ZZ Dilation of Common Bile Duct, Via Natural or Artificial Opening Endoscopic (ICD-10-PCS; 2017-05-23 18:00)
DX: K80.50 Calculus of bile duct without cholangitis or cholecystitis without obstruction (principal); J45.909 Unspecified asthma, uncomplicated; G43.909 Migraine, unspecified, not intractable, without status migrainosus; Z88.1 Allergy status to other antibiotic agents; Z90.49 Acquired absence of other specified parts of digestive tract
CPT/HCPCS: 36415; 43262; 43264; 732; 74328; 80053; 81001; 81025; 83690; 85025; 99284; J0330; J2250; J2405; J2543; J2550; J2704; J3010; J3370; J3490; J7030

== ENCOUNTER → 2017-05-29 | Outpatient (CLI) | payer OTHER ==
[2017-05-29 13:34] LABS: ABSOLUTE BASOPHILS # (AUTO) 0.1 10^3/uL (0.0-0.2); ABSOLUTE EOSINOPHILS # (AUTO) 0.4 10^3/uL (0.0-0.6); ABSOLUTE LYMPHOCYTES (AUTO) 3.1 10^3/uL (0.5-4.7); ABSOLUTE MONOCYTES (AUTO) 0.8 10^3/uL (0.1-1.4); BASOPHILS % (AUTO) 1.2 % (0-2); EOSINOPHILS % (AUTO) 4.1 % (0-6); HEMATOCRIT 37.5 % (36.0-47.0); HEMOGLOBIN 12.5 g/dL (12.0-15.5); LYMPHOCYTES % (AUTO) 29.4 % (13-45); MEAN CORPUSCULAR HEMOGLOBIN 27.8 pg (27.0-33.4); MEAN CORPUSCULAR HGB CONC 33.4 g/dL (32.0-36.0); MEAN CORPUSCULAR VOLUME 83 fl (80-97); MONOCYTES % (AUTO) 7.7 % (3-13); PLATELET COUNT 470 10^3/uL (150-450); RED BLOOD COUNT 4.49 10^6/uL (3.72-5.28); RED CELL DISTRIBUTION WIDTH 14.2 % (11.5-14.0); SEGMENTED NEUTROPHILS % (AUTO) 57.6 % (42-78); TOTAL CELLS COUNTED % (AUTO) 100 %; WHITE BLOOD COUNT 10.4 10^3/uL (4.0-10.5)
[2017-05-29 13:45] LABS: ALANINE AMINOTRANSFERASE 118 U/L (9-52); ALBUMIN 4.4 g/dL (3.5-5.0); ALKALINE PHOSPHATASE 132 U/L (38-126); ANION GAP 11 (5-19); ASPARTATE AMINO TRANSFERASE 28 U/L (14-36); BILIRUBIN,DIRECT 0.5 mg/dL (0.0-0.4); BILIRUBIN,TOTAL 0.5 mg/dL (0.2-1.3); BLOOD UREA NITROGEN 12 mg/dL (7-20); CALCIUM 9.9 mg/dL (8.4-10.2); CARBON DIOXIDE 24 mmol/L (22-30); CHLORIDE 106 mmol/L (98-107); GLUCOSE 102 mg/dL (75-110); POTASSIUM 4.5 mmol/L (3.6-5.0); SODIUM 140.7 mmol/L (137-145); TOTAL PROTEIN 6.9 g/dL (6.3-8.2)
== END ==
LOC: LAB 13:09
PROVIDERS: ATTEND Surgery
DX: K80.50 Calculus of bile duct without cholangitis or cholecystitis without obstruction (principal)
CPT/HCPCS: 36415; 80053; 83690; 85025

== ENCOUNTER 2017-08-25 22:23 | Emergency (ER) | payer OTHER ==
--- NOTE | 2017-08-25 23:31 | ER Document Report ---
ED General - General Chief Complaint: Allergy Symptoms Stated Complaint: SWELLING Time Seen by Provider: 08/25/17 23:05 Notes: Patient is a 42-year-old female without chronic medical problems, past history of choledocholithiasis with an associated gallbladder resection who presents with 2-3 days of bilateral lower extremity edema and 24 hours of shortness of breath. The patient states that initially she noted a rash on her bilateral lower extremities that consisted of red dots on her legs but has now turned mostly into swelling. She notes a dull, throbbing, constant pain to the bilateral legs since onset. Nothing seems to improve or worsen her symptoms. She denies any history of similar symptoms in the past. She has not seen her general doctor regarding today's concerns. She denies any history of DVT or pulmonary embolus. She denies any use of estrogen. She states that her shortness of breath became worse tonight when she tried to lay flat which is what prompted her to come to the hospital for further assessment. She denies any cardiac history. No history of restrictive or obstructive lung pathology. TRAVEL OUTSIDE OF THE [place] IN LAST 30 DAYS: No - Related Data Allergies/Adverse Reactions: amoxicillin Allergy (Verified 01/29/16 09:54) Past Medical History - General Information source: Patient - Social History Smoking Status: Never Smoker Frequency of alcohol use: None Drug Abuse: None Lives with: Spouse/Significant other Family History: Reviewed & Not Pertinent Pulmonary Medical History: Reports: Hx Asthma Neurological Medical History: Reports: Hx Migraine Renal/ Medical History: Denies: Hx Peritoneal Dialysis Psychiatric Medical History: Denies: Hx Depression Past Surgical History: Reports: Hx Cholecystectomy, Hx Gynecologic Surgery - ovary cyst, Hx Orthopedic Surgery - toes bilaterally, Other - Open Left Ovarian Cystectomy 28 yrs ago Diagnostic Laparoscopy 3 yrs ago Review of Systems - Review of Systems Notes: Constitutional: Negative for fever. HENT: Negative for sore throat. Eyes: Negative for visual changes. Cardiovascular: Negative for chest pain. Respiratory: Positive for shortness of breath. Gastrointestinal: Negative for abdominal pain, vomiting or diarrhea. Genitourinary: Negative for dysuria. Musculoskeletal: Positive for bilateral lower extremity pain and swelling Skin: Negative for rash. Neurological: Negative for headaches, weakness or numbness. 10 point ROS negative except as marked above and in HPI. Physical Exam - Vital signs Vitals: Temp Pulse Resp BP Pulse Ox 98.7 F 101 H 18 125/76 97 08/25/17 22:33 08/25/17 22:33 08/25/17 22:33 08/25/17 22:33 08/25/17 22:33 Interpretation: Tachycardic - Resolved at the time of my initial assessment Notes: PHYSICAL EXAMINATION: GENERAL: Well-appearing, well-nourished and in no acute distress. HEAD: Atraumatic, normocephalic. EYES: Pupils equal round and reactive to light, extraocular movements intact, sclera anicteric, conjunctiva are normal. ENT: nares patent, oropharynx clear without exudates. Moist mucous membranes. NECK: Normal range of motion, supple without lymphadenopathy LUNGS: Breath sounds clear to auscultation bilaterally and equal. No wheezes rales or rhonchi. HEART: Regular rate and rhythm without murmurs ABDOMEN: Soft, nontender, normoactive bowel sounds. No guarding, no rebound. No masses appreciated. EXTREMITIES: Normal range of motion, trace edema in the bilateral lower extremities that is equal and symmetric. No cyanosis. NEUROLOGICAL: No focal neurological deficits. Moves all extremities spontaneously and on command. PSYCH: Normal mood, normal affect. SKIN: Warm, Dry, normal turgor, no rashes or lesions noted. Course - Re-evaluation Re-evalutation: 08/25/17 23:30 Patient presents with 2 days of progressively worsening bilateral lower extremity edema as well as shortness of breath. The patient states that initially she had some area of blotchy redness in the bilateral lower extremities which has now mostly resolved and has been replaced by 24 hours of progressively worsening edema. The patient does have trace edema notable in the bilateral lower extremities that is equal and symmetric. She also complains of shortness of breath as well as some orthopnea. She denies any known history of congestive heart failure, chronic kidney disease or liver failure. She denies any active chest pain and has not had any chest pain during the course of this episode. The patient's exam is unremarkable with exception of trace edema bilateral lower bodies. Although the patient could have renal failure or congestive heart failure she does not have any clear reason as to why she would have developed out of these diagnoses. Her clinical picture is not consistent with a cellulitis, acute DVT given the bilateral nature of her symptoms, and the edema is notable only below the patella on both sides making an IVC occlusion seem improbable as well. Will proceed with labs, chest x-ray and reassess the patient. 08/26/17 02:41 Labs unremarkable, chest x-ray clear. Patient's vitals remain within normal limits. Will place compression stockings, begin furosemide. Although when patient first arrived her heart rate was noted to be 101 patient admits to some anxiety at time of presentation and when I assessed the patient heart rate was 92. A recheck of the heart rate shows a heart rate of 94 without fluid resuscitation. Patient is considered therefore negative by PERC criteria. At this time will discharge with return precautions and follow-up recommendations. Verbal discharge instructions given a the bedside and opportunity for questions given. Medication warnings reviewed. Patient is in agreement with this plan and has verbalized understanding of return precautions and the need for primary care follow-up in the next 24-72 hours. - Vital Signs Vital signs: Temp Pulse Resp BP Pulse Ox 98.2 F 57 L 16 103/61 97 08/26/17 02:51 08/26/17 02:51 08/26/17 02:51 08/26/17 02:51 08/26/17 02:51 - Laboratory Result Diagrams: 08/25/17 23:50 08/25/17 23:50 Laboratory results interpreted by me: 08/25/17 08/25/17 23:50 23:50 Hgb 11.0 L Hct 33.3 L RDW 14.6 H Chloride 109 H Glucose 113 H - Diagnostic Test Radiology reviewed: Image reviewed, Reports reviewed Radiology results interpreted by me: 08/26/17 02:41 Chest x-ray: No acute infiltrate or pneumothorax - EKG Interpretation by Me Additional EKG results interpreted by me: 08/26/17 02:41 Sinus rhythm. Rate 101. No ST elevations or depressions. QTC is 467. Discharge - Discharge Clinical Impression: Shortness of breath, Bilateral lower extremity edema Condition: Good Disposition: HOME, SELF-CARE Additional Instructions: Your labs are normal today. Your chest x-ray is also normal. I am uncertain of the exact cause of why your swelling in your legs at this point. You are being placed in compression stockings and started on a one-week course of a diuretic makes medication called Lasix. However, you need to follow-up very closely with your primary care doctor ideally tomorrow or the next day as additional testing may be indicated. Please return to the emergency department immediately if you have worsening of her shortness of breath, develop a fever of greater than 100.4 F, noticed 1 of your legs is more swollen than the other , have abdominal pain, have persistent vomiting, or have any other symptoms that are worrisome to you. Prescriptions: Furosemide [Lasix 20 mg Tablet] 20 mg PO QAM #7 tablet
[2017-08-26 00:14] LABS: ABSOLUTE BASOPHILS # (AUTO) 0.1 10^3/uL (0.0-0.2); ABSOLUTE EOSINOPHILS # (AUTO) 0.5 10^3/uL (0.0-0.6); ABSOLUTE LYMPHOCYTES (AUTO) 2.6 10^3/uL (0.5-4.7); ABSOLUTE NEUT (AUTO) 5.7 10^3/uL (1.7-8.2); BASOPHILS % (AUTO) 0.8 % (0-2); EOSINOPHILS % (AUTO) 5.4 % (0-6); HEMATOCRIT 33.3 % (36.0-47.0); LYMPHOCYTES % (AUTO) 26.7 % (13-45); MEAN CORPUSCULAR HEMOGLOBIN 27.3 pg (27.0-33.4); MEAN CORPUSCULAR VOLUME 83 fl (80-97); PLATELET COUNT 400 10^3/uL (150-450); RED BLOOD COUNT 4.04 10^6/uL (3.72-5.28); RED CELL DISTRIBUTION WIDTH 14.6 % (11.5-14.0); SEGMENTED NEUTROPHILS % (AUTO) 57.1 % (42-78); TOTAL CELLS COUNTED % (AUTO) 100 %; WHITE BLOOD COUNT 9.9 10^3/uL (4.0-10.5)
[2017-08-26 00:44] LABS: NT PRO BNP 58 pg/mL (<125)
[2017-08-26 00:45] LABS: TROPONIN I < 0.012 ng/mL
--- NOTE | 2017-08-26 00:49 | RADIOLOGY REPORT (SQ) ---
EXAM DESCRIPTION: XR CHEST 1 VIEW COMPLETED DATE/TME: 08/25/2017 23:28 CLINICAL HISTORY: sob COMPARISON: 01/29/2016 FINDINGS: Single frontal view of the chest. The cardiomediastinal silhouette has normal size and contour. No consolidation, pneumothorax, or pleural effusion. No displaced rib fractures identified. Upper abdominal soft tissues are unremarkable. IMPRESSION: 1. No acute pulmonary process identified.
--- NOTE | 2017-08-26 00:49 | EKG REPORT ---
SEVERITY:- OTHERWISE NORMAL ECG - SINUS TACHYCARDIA : Confirmed by: Pooja Kaplan MD 26-Aug-2017 00:48:39
[2017-08-26 00:53] LABS: ALANINE AMINOTRANSFERASE 23 U/L (9-52); ALBUMIN 3.8 g/dL (3.5-5.0); ALKALINE PHOSPHATASE 77 U/L (38-126); ANION GAP 10 (5-19); ASPARTATE AMINO TRANSFERASE 14 U/L (14-36); BILIRUBIN,DIRECT 0.2 mg/dL (0.0-0.4); BILIRUBIN,TOTAL 0.2 mg/dL (0.2-1.3); BLOOD UREA NITROGEN 14 mg/dL (7-20); CALCIUM 9.2 mg/dL (8.4-10.2); CARBON DIOXIDE 25 mmol/L (22-30); CHLORIDE 109 mmol/L (98-107); CREATINE KINASE 59 U/L (30-135); GLUCOSE 113 mg/dL (75-110); POTASSIUM 4.1 mmol/L (3.6-5.0); SODIUM 143.6 mmol/L (137-145); TOTAL PROTEIN 6.3 g/dL (6.3-8.2)
[2017-08-26] MEDS ORDERED: FUROSEMIDE 20 MG TABLET PO ONE (02:40)
[2017-08-26 02:59] VITALS: BP 103/61
== END 2017-08-26 02:59 | disposition home or self-care (01) ==
LOC: ER 22:23
DX: R06.02 Shortness of breath (principal); R60.0 Localized edema; M79.604 Pain in right leg; M79.605 Pain in left leg; R21 Rash and other nonspecific skin eruption; J45.909 Unspecified asthma, uncomplicated
CPT/HCPCS: 36415; 71045; 80053; 82550; 83880; 84484; 85025; 93005; 93010; 99285

== ENCOUNTER → 2017-09-09 | Outpatient (CLI) | payer OTHER ==
[2017-09-09 08:31] LABS: ABSOLUTE BASOPHILS # (AUTO) 0.1 10^3/uL (0.0-0.2); ABSOLUTE EOSINOPHILS # (AUTO) 0.4 10^3/uL (0.0-0.6); ABSOLUTE LYMPHOCYTES (AUTO) 2.8 10^3/uL (0.5-4.7); ABSOLUTE MONOCYTES (AUTO) 0.9 10^3/uL (0.1-1.4); ABSOLUTE NEUT (AUTO) 8.4 10^3/uL (1.7-8.2); BASOPHILS % (AUTO) 0.6 % (0-2); EOSINOPHILS % (AUTO) 3.1 % (0-6); HEMOGLOBIN 11.6 g/dL (12.0-15.5); LYMPHOCYTES % (AUTO) 22.4 % (13-45); MEAN CORPUSCULAR HEMOGLOBIN 26.5 pg (27.0-33.4); MEAN CORPUSCULAR HGB CONC 32.2 g/dL (32.0-36.0); MEAN CORPUSCULAR VOLUME 83 fl (80-97); MONOCYTES % (AUTO) 7.1 % (3-13); PLATELET COUNT 456 10^3/uL (150-450); RED BLOOD COUNT 4.36 10^6/uL (3.72-5.28); RED CELL DISTRIBUTION WIDTH 14.5 % (11.5-14.0); SEGMENTED NEUTROPHILS % (AUTO) 66.8 % (42-78); TOTAL CELLS COUNTED % (AUTO) 100 %; WHITE BLOOD COUNT 12.6 10^3/uL (4.0-10.5)
[2017-09-09 08:48] LABS: ALANINE AMINOTRANSFERASE 21 U/L (9-52); ALBUMIN 3.9 g/dL (3.5-5.0); ALKALINE PHOSPHATASE 82 U/L (38-126); ANION GAP 12 (5-19); ASPARTATE AMINO TRANSFERASE 16 U/L (14-36); BILIRUBIN,DIRECT 0.3 mg/dL (0.0-0.4); BILIRUBIN,TOTAL 0.4 mg/dL (0.2-1.3); BLOOD UREA NITROGEN 15 mg/dL (7-20); CARBON DIOXIDE 24 mmol/L (22-30); CHLORIDE 108 mmol/L (98-107); CHOLESTEROL 135.49 mg/dL (0-200); GLUCOSE 87 mg/dL (75-110); POTASSIUM 4.2 mmol/L (3.6-5.0); SODIUM 143.8 mmol/L (137-145); TOTAL PROTEIN 6.6 g/dL (6.3-8.2); TRIGLYCERIDES 123 mg/dL (<150)
[2017-09-09 08:59] LABS: DIRECT LDL 32 mg/dL (<100)
== END ==
LOC: CCC 07:19
DX: Z00.00 Encounter for general adult medical examination without abnormal findings (principal)
CPT/HCPCS: 36415; 80053; 80061; 83036; 84443; 85025

== ENCOUNTER 2017-09-15 16:37 | Emergency (ER) | payer OTHER ==
--- NOTE | 2017-09-15 17:17 | ER Document Report ---
ED General - General Chief Complaint: Leg Swelling Stated Complaint: LEG SWELLING Time Seen by Provider: 09/15/17 16:58 Mode of Arrival: Ambulatory Information source: Patient Notes: This is a 42-year-old female with a history of asthma, right knee arthritis ( meloxicam) who presents to the emergency room with increasing lower extremity edema over the last week. Patient states she is had this before and was treated for a week with Lasix with improvement and started to get symptoms again and did not want to wait too long. Patient denies chest pain or shortness of breath. Patient denies fever or rash. TRAVEL OUTSIDE OF THE [place] IN LAST 30 DAYS: No - HPI Onset: Last week Onset/Duration: Gradual Quality of pain: No pain Severity: None Pain Level: Denies Associated symptoms: denies: Chest pain, Fever, Shortness of breath Exacerbated by: Denies Relieved by: Denies Similar symptoms previously: Yes Recently seen / treated by doctor: No - Related Data Allergies/Adverse Reactions: amoxicillin Allergy (Verified 01/29/16 09:54) Past Medical History - General Information source: Patient - Social History Smoking Status: Never Smoker Cigarette use (# per day): No Chew tobacco use (# tins/day): No Smoking Education Provided: Yes Drug Abuse: None Lives with: Family Family History: Reviewed & Not Pertinent Patient has suicidal ideation: No Patient has homicidal ideation: No - Past Medical History Cardiac Medical History: Reports: None Pulmonary Medical History: Reports: Hx Asthma Neurological Medical History: Reports: Hx Migraine Renal/ Medical History: Denies: Hx Peritoneal Dialysis Psychiatric Medical History: Denies: Hx Depression Past Surgical History: Reports: Hx Cholecystectomy, Hx Gynecologic Surgery - ovary cyst, Hx Orthopedic Surgery - toes bilaterally, Other - Open Left Ovarian Cystectomy 28 yrs ago Diagnostic Laparoscopy 3 yrs ago Review of Systems - Review of Systems Constitutional: denies: Chills, Fever EENT: No symptoms reported Cardiovascular: denies: Chest pain, Palpitations Respiratory: denies: Cough, Short of breath Gastrointestinal: denies: Abdominal pain, Vomiting Genitourinary: No symptoms reported Female Genitourinary: No symptoms reported Musculoskeletal: See HPI Skin: See HPI Hematologic/Lymphatic: No symptoms reported Neurological/Psychological: No symptoms reported Physical Exam - Vital signs Vitals: Temp Pulse Resp BP Pulse Ox 98.6 F 94 20 121/67 97 09/15/17 16:43 09/15/17 16:43 09/15/17 16:43 09/15/17 16:43 09/15/17 16:43 Notes: Physical exam: GENERAL: 42-year-old female HEAD: Atraumatic, normocephalic. EYES: Pupils equal round and reactive to light, extraocular movements intact, sclera anicteric, conjunctiva are normal. ENT: TMs normal, nares patent, oropharynx clear without exudates. Moist mucous membranes. NECK: Normal range of motion, supple without obvious mass or JVD. LUNGS: Breath sounds clear to auscultation bilaterally and equal. No wheezes rales or rhonchi. HEART: Regular rate and rhythm without murmurs, rubs or gallops. ABDOMEN: Soft, normoactive bowel sounds. No tenderness to palpation. No guarding, no rebound. No masses appreciated. EXTREMITIES: Normal range of motion, no pitting or edema. No clubbing or cyanosis. NEUROLOGICAL: Cranial nerves II through XII grossly intact. Normal speech, moving all extremities. PSYCH: Normal mood, normal affect. SKIN: Warm, Dry, normal turgor, no rashes or lesions noted. Course - Vital Signs Vital signs: Temp Pulse Resp BP Pulse Ox 98.4 F 87 17 120/70 95 09/15/17 20:00 09/15/17 20:00 09/15/17 20:00 09/15/17 20:00 09/15/17 20:00 - Laboratory Result Diagrams: 09/15/17 17:50 09/15/17 17:50 Laboratory results interpreted by me: 09/15/17 09/15/17 16:53 17:50 WBC 13.9 H MCH 26.7 L RDW 14.1 H Absolute Neutrophils 8.9 H Ur Leukocyte Esterase LARGE H Discharge - Discharge Clinical Impression: Pedal edema Condition: Stable Disposition: HOME, SELF-CARE Instructions: Edema, Peripheral ([facility]) Additional Instructions: Recommendations: Take the Lasix as described. Also take the potassium supplements. Use the support stockings when standing up or driving a lot) follow-up with your doctor in the [facility]. Return to the emergency room for any shortness of breath, chest pain or any worsening swelling. As discussed, we did send a urine culture. If it comes back positive for an infection, we will call you back. Prescriptions: Furosemide [Lasix 20 mg Tablet] 20 mg PO QAM #14 tablet Potassium Chloride [Klor-Con 10 Meq Capsule ER] 20 meq PO DAILY #30 tablet.sa Referrals: [facility] [NO LOCAL MD] - Follow up as needed
[2017-09-15 17:37] LABS: APPEARANCE,URINE SLIGHTLY-CLOUDY; BILIRUBIN,URINE NEGATIVE (NEGATIVE); COLOR,URINE YELLOW; GLUCOSE, URINE NEGATIVE (NEGATIVE); KETONES,URINE NEGATIVE (NEGATIVE); LEUKOCYTE ESTERASE,URINE LARGE (NEGATIVE); NITRITE,URINE NEGATIVE (NEGATIVE); PROTEIN,URINE NEGATIVE (NEGATIVE); URINE SPECIFIC GRAVITY 1.023; UROBILINOGEN,URINE NEGATIVE mg/dL (<2.0)
[2017-09-15 18:00] LABS: ABSOLUTE BASOPHILS # (AUTO) 0.1 10^3/uL (0.0-0.2); ABSOLUTE EOSINOPHILS # (AUTO) 0.3 10^3/uL (0.0-0.6); ABSOLUTE LYMPHOCYTES (AUTO) 3.3 10^3/uL (0.5-4.7); ABSOLUTE MONOCYTES (AUTO) 1.3 10^3/uL (0.1-1.4); ABSOLUTE NEUT (AUTO) 8.9 10^3/uL (1.7-8.2); BASOPHILS % (AUTO) 0.6 % (0-2); EOSINOPHILS % (AUTO) 2.5 % (0-6); HEMATOCRIT 36.9 % (36.0-47.0); LYMPHOCYTES % (AUTO) 23.6 % (13-45); MEAN CORPUSCULAR HEMOGLOBIN 26.7 pg (27.0-33.4); MEAN CORPUSCULAR HGB CONC 32.5 g/dL (32.0-36.0); MEAN CORPUSCULAR VOLUME 82 fl (80-97); MONOCYTES % (AUTO) 9.2 % (3-13); PLATELET COUNT 445 10^3/uL (150-450); RED BLOOD COUNT 4.48 10^6/uL (3.72-5.28); RED CELL DISTRIBUTION WIDTH 14.1 % (11.5-14.0); SEGMENTED NEUTROPHILS % (AUTO) 64.1 % (42-78); TOTAL CELLS COUNTED % (AUTO) 100 %; WHITE BLOOD COUNT 13.9 10^3/uL (4.0-10.5)
[2017-09-15 18:24] LABS: ALANINE AMINOTRANSFERASE 24 U/L (9-52); ALBUMIN 4.3 g/dL (3.5-5.0); ALKALINE PHOSPHATASE 86 U/L (38-126); ANION GAP 12 (5-19); ASPARTATE AMINO TRANSFERASE 18 U/L (14-36); BILIRUBIN,DIRECT 0.2 mg/dL (0.0-0.4); BILIRUBIN,TOTAL 0.3 mg/dL (0.2-1.3); BLOOD UREA NITROGEN 15 mg/dL (7-20); CALCIUM 9.6 mg/dL (8.4-10.2); CARBON DIOXIDE 26 mmol/L (22-30); CHLORIDE 105 mmol/L (98-107); GLUCOSE 83 mg/dL (75-110); SODIUM 143.1 mmol/L (137-145); TOTAL PROTEIN 7.3 g/dL (6.3-8.2)
[2017-09-15 20:01] VITALS: BP 120/70
== END 2017-09-15 20:00 | disposition home or self-care (01) ==
LOC: ER 16:37
DX: R60.0 Localized edema (principal); M17.11 Unilateral primary osteoarthritis, right knee; Z79.1 Long term (current) use of non-steroidal anti-inflammatories (NSAID); J45.909 Unspecified asthma, uncomplicated; Z88.0 Allergy status to penicillin
CPT/HCPCS: 36415; 80053; 81001; 85025; 87086; 99283